=== PATIENT | female | born 1985 | race Caucasian/White ===

== ENCOUNTER 2025-07-16 11:07 | Outpatient (CLI) | payer OTHER, SELFPAY ==
--- NOTE | ~2025-07-16 | MM_ITS ---
EXAMINATION: MM scrn quinn implant BI w alyssa HISTORY: Screening mammogram TECHNIQUE: Craniocaudal and mediolateral oblique 3-D tomosynthesis images with implant displacement and synthetic 2-D images were generated. Craniocaudal and mediolateral oblique views of the breasts without implant displacement were obtained using full field digital mammography. CAD analysis was submitted and interpreted. COMPARISON: No prior mammogram is available for comparison at this institution. BREAST PARENCHYMAL COMPOSITION: Dense: The breasts are heterogeneously dense, which may obscure small masses FINDINGS: There are bilateral subpectoral saline implants. There are bilateral asymmetry superiorly in the breast on MLO implant displaced views, not well visualized on CC views. IMPRESSION: 1. Bilateral breast asymmetries located superiorly in both breasts, posterior third on the right and middle third on the left. 2. Additional mammographic views and possible breast ultrasound are recommended. BI-RADS Category 0: Incomplete: Needs additional imaging evaluation. Reviewed, dictated and finalized at location B. IMPRESSION: 1. Bilateral breast asymmetries located superiorly in both breasts, posterior t hird on the right and middle third on the left. 2. Additional mammographic views and possible breast ultrasound are recommended . BI-RADS Category 0: Incomplete: Needs additional imaging evaluation.
== END 2025-07-16 11:08 | disposition home or self-care (01) ==
LOC: MICIMG 11:08
PROVIDERS: PCP Nurse Practitioner Women's Health; Visit Provider Nurse Practitioner Women's Health
DX: Z12.31 Encounter for screening mammogram for malignant neoplasm of breast (principal); R92.8 Other abnormal and inconclusive findings on diagnostic imaging of breast
CPT/HCPCS: 77063; 77067

== ENCOUNTER 2025-09-09 07:50 | Outpatient (CLI) | payer OTHER, SELFPAY ==
--- NOTE | ~2025-09-09 | MMUS_ITS ---
EXAMINATION: US breast BI limited, MM diag quinn implant BI w alyssa HISTORY: Additional imaging TECHNIQUE: Craniocaudal and mediolateral oblique 3-D tomosynthesis images were obtained and synthetic 2-D images were generated. CAD analysis was submitted and interpreted. Grayscale sonography over the area(s) of interest with color Doppler if there is a finding. COMPARISON: July 16 BREAST PARENCHYMAL COMPOSITION: Dense: The breasts are heterogeneously dense. The dense tissue may obscure some lesions mammographically. MAMMOGRAM FINDINGS: There is/are retropectoral saline implants. The presence of implants decreases the sensitivity of mammography. A probable intramammary lymph node is seen at approximately 10:00 on the right. An ovoid, circumscribed structure persists at 2-3 o'clock on the left. There are no suspicious calcifications. No unexplained architectural distortion is seen. There are no skin or nipple abnormalities identified. There is no adenopathy seen on the images submitted. ULTRASOUND FINDINGS: Sonography through the 10:00 right breast demonstrates a 5 mm reniform structure, consistent with an intramammary lymph node. Additionally seen at 10:00 is a 6 mm cyst. No suspicious masses are seen. At 3:00 on the left, there is a septated cyst containing low-level echoes. It has a maximum dimension of approximately 7 mm. There is a 3 mm structure containing low-level echoes thought to be consistent with a cyst noted at 2:00. The echoes are likely secondary to small size. IMPRESSION: Benign findings bilaterally as described. No mammographic or sonographic evidence to suggest malignancy is seen. The patient may return to screening mammography as per ACR guidelines. BI-RADS 2 - Benign. Reviewed, dictated and finalized at location C. OGRAPHIC DRAFTER IMPRESSION: Benign findings bilaterally as described. No mammographic or sonographic eviden ce to suggest malignancy is seen. The patient may return to screening mammograp hy as per ACR guidelines. BI-RADS 2 - Benign.
== END 2025-09-09 07:51 | disposition home or self-care (01) ==
PROVIDERS: PCP Nurse Practitioner Women's Health; Visit Provider Nurse Practitioner Women's Health
DX: R92.8 Other abnormal and inconclusive findings on diagnostic imaging of breast (principal)
CPT/HCPCS: 76642; 77062; 77066; G0279